=== PATIENT | female | born 1940 | race Two or more races ===

== ENCOUNTER 2022-03-22 18:52 | Emergency (ER) | payer OTHER, BC ==
[~2022-03-22] VITALS: Ht 144.8 cm; Wt 56.7 kg
[2022-03-22] MEDS ORDERED: CARDIZEM30 MG (19:18)
[2022-03-22] MEDS ORDERED: RANEXA500 MG (19:18)
[2022-03-22] MEDS ORDERED: ACID REDUCER20 M1 (19:19)
[2022-03-22] MEDS ORDERED: DICLOFENAC35 MG (19:19)
[2022-03-22] MEDS ORDERED: DIOVAN40 MG (19:19)
[2022-03-22] MEDS ORDERED: ATORVASTATIN CA10 MG (19:19)
[2022-03-22] MEDS ORDERED: TUSNEL LIQUID178 ML PO (21:23)
[2022-03-22] MEDS ORDERED: PROAIR HFA8.5 GM IH (21:23)
[2022-03-22] MEDS ORDERED: ZITHROMAX500 MG PO (21:23)
[2022-03-22] MEDS ORDERED: CARDIZEM CD240 MG PO (21:27)
[2022-03-22] MEDS ORDERED: DIOVAN HCT 1601 EAC1 PO (21:27)
[2022-03-22] MEDS ORDERED: RANEXA500 MG PO (21:33)
== END 2022-03-22 21:36 | disposition home or self-care (01) ==
LOC: ER 18:52
DX: U07.1 COVID-19 (principal); R05.9 Cough, unspecified

== ENCOUNTER 2022-04-01 13:10 | Emergency (ER) | payer OTHER, BC ==
[~2022-04-01] VITALS: Ht 144.8 cm; Wt 57.2 kg
[~2022-04-01 13:10] MED LIST: ACID REDUCER20 M1; ATORVASTATIN CA10 MG; CARDIZEM CD240 MG PO; CARDIZEM30 MG; DICLOFENAC35 MG; DIOVAN HCT 1601 EAC1 PO; DIOVAN40 MG; PROAIR HFA8.5 GM IH; RANEXA500 MG; RANEXA500 MG PO; TUSNEL LIQUID178 ML PO; ZITHROMAX500 MG PO
== END 2022-04-01 15:08 | disposition home or self-care (01) ==
LOC: ER 13:10
DX: U07.1 COVID-19 (principal); I10 Essential (primary) hypertension; E11.9 Type 2 diabetes mellitus without complications; Z88.9 Allergy status to unspecified drugs, medicaments and biological substances